=== PATIENT | male | born 1935 | race Caucasian/White ===

== ENCOUNTER 2019-10-23 16:05 | Emergency (ER) | payer MEDICARE ==
--- NOTE | 2019-10-23 16:28 | ER Document Report ---
ED Medical Screen (RME) - General Chief Complaint: Abnormal Lab Results Stated Complaint: ABNORMAL LABS Time Seen by Provider: 10/23/19 16:19 - HPI Notes: 10/23/19 16:23 83-year-old male with a history of cardiac bypass in 2006 and colon cancer who is currently in remission with a medical hx of hypothyroidism, hypercholesterolemia, hypertension, macular degeneration presents to the emergency room for hypokalemia and "something wrong with my kidneys". Patient states that he had blood work done at [facility] and advised to go to the local emergency room. Denies fevers, chills, chest pain,palpitations, shortness of breath, dyspnea, nausea, vomiting, diarrhea, abdominal pain, hematuria,blurred vision, double vision, loss of vision, speech changes, LH, dizziness, syncope, headaches, wheezing, ST, URI, neck pain, weakness, bowel or bladder dysfunction, saddle anesthesia, numbness or tingling in bilateral upper or lower extremities equally, muscle paralysis, weakness in bilateral upper or lower extremities equally or rash. Patient has never been seen on the emergency room before I have greeted and performed a rapid initial assessment of this patient. A comprehensive ED assessment and evaluation of the patient, analysis of test results and completion of the medical decision making process will be conducted by additional ED providers. PHYSICAL EXAMINATION: GENERAL: Well-appearing, well-nourished and in no acute distress. CV: s1, s2 regular LUNGS: No respiratory distress Musculoskeletal: Normal range of motion NEUROLOGICAL: Normal speech, normal gait. SKIN: Warm, Dry, normal turgor, no rashes or lesions noted. 10/23/19 16:26 Physical Exam - Vital signs Vitals: Temp Pulse Resp BP Pulse Ox 97.9 F 74 18 160/73 H 98 10/23/19 16:10 10/23/19 16:10 10/23/19 16:10 10/23/19 16:10 10/23/19 16:10 Course - Vital Signs Vital signs: Temp Pulse Resp BP Pulse Ox 97.9 F 74 18 160/73 H 98 10/23/19 16:10 10/23/19 16:10 10/23/19 16:10 10/23/19 16:10 10/23/19 16:10
[2019-10-23 17:19] LABS: ABSOLUTE BASOPHILS # (AUTO) 0.1 10^3/uL (0.0-0.2); ABSOLUTE EOSINOPHILS # (AUTO) 0.5 10^3/uL (0.0-0.6); ABSOLUTE LYMPHOCYTES (AUTO) 2.3 10^3/uL (0.5-4.7); ABSOLUTE MONOCYTES (AUTO) 0.8 10^3/uL (0.1-1.4); ABSOLUTE NEUT (AUTO) 4.2 10^3/uL (1.7-8.2); EOSINOPHILS % (AUTO) 5.9 % (0-6); HEMOGLOBIN 9.9 g/dL (13.5-17.0); MEAN CORPUSCULAR HEMOGLOBIN 31.6 pg (27.0-33.4); MEAN CORPUSCULAR VOLUME 96 fl (80-97); MONOCYTES % (AUTO) 10.1 % (3-13); PLATELET COUNT 218 10^3/uL (150-450); RED BLOOD COUNT 3.14 10^6/uL (4.35-5.55); RED CELL DISTRIBUTION WIDTH 14.6 % (11.5-14.0); TOTAL CELLS COUNTED % (AUTO) 100 %; WHITE BLOOD COUNT 7.9 10^3/uL (4.0-10.5)
[2019-10-23 17:40] LABS: ALBUMIN 4.1 g/dL (3.5-5.0); ALKALINE PHOSPHATASE 112 U/L (38-126); ANION GAP 6 (5-19); ASPARTATE AMINO TRANSFERASE 24 U/L (17-59); BILIRUBIN,TOTAL 0.2 mg/dL (0.2-1.3); BLOOD UREA NITROGEN 51 mg/dL (7-20); CALCIUM 9.2 mg/dL (8.4-10.2); CARBON DIOXIDE 17 mmol/L (22-30); CHLORIDE 116 mmol/L (98-107); CREATINE KINASE 47 U/L (55-170); GLUCOSE 98 mg/dL (75-110); PHOSPHORUS 4.3 mg/dL (2.5-4.5)
[2019-10-23 17:50] LABS: CREATINE KINASE MB 1.19 ng/mL (<4.55); TROPONIN I < 0.012 ng/mL
[2019-10-23 17:53] LABS: APPEARANCE,URINE SLIGHTLY-CLOUDY; BILIRUBIN,URINE NEGATIVE (NEGATIVE); COLOR,URINE YELLOW; GLUCOSE, URINE NEGATIVE (NEGATIVE); KETONES,URINE NEGATIVE (NEGATIVE); LEUKOCYTE ESTERASE,URINE TRACE (NEGATIVE); NITRITE,URINE NEGATIVE (NEGATIVE); PROTEIN,URINE NEGATIVE (NEGATIVE); URINE SPECIFIC GRAVITY 1.013; UROBILINOGEN,URINE NEGATIVE mg/dL (<2.0)
[2019-10-23 18:10] LABS: POTASSIUM 6.7 mmol/L (3.6-5.0)
--- NOTE | 2019-10-23 19:08 | ER Document Report ---
ED General <JUAN CARLOS GARZA - Last Filed: 10/23/19 19:07> - General Mode of Arrival: Ambulatory Information source: Patient - HPI Onset: Just prior to arrival <JCARLOS ONEIL JR - Last Filed: 10/23/19 19:16> - General Chief Complaint: Abnormal Lab Results Stated Complaint: ABNORMAL LABS Time Seen by Provider: 10/23/19 16:19 Notes: 10/23/19 18:52 - ED Nursing Note by OLVIN DAI Acct Num: [id number] : 1935 Patient Age: 83 Patient presents after having blood taken yesterday at MD office and was contacted and told to come to ED due to abnormal lab values. Patient has a potassium level of 6.7. Patient alert, oriented and at baseline. Respirations e/u. Patient gowned and applied to hospital monitor/bp/pulse ox and PIV established. (JCARLOS ONEIL JR) - Related Data Allergies/Adverse Reactions: No Known Allergies Allergy (Unverified 10/23/19 18:49) Past Medical History - Social History Smoking Status: Unknown if Ever Smoked Patient has homicidal ideation: No - Past Medical History Cardiac Medical History: Reports: Hx Hypercholesterolemia, Hx Hypertension Past Surgical History: Reports: Hx Cardiac Surgery - bypass 2006 <JUAN CARLOS GARZA - Last Filed: 10/23/19 19:07> Physical Exam - Vital signs Vitals: Temp Pulse Resp BP Pulse Ox 97.9 F 74 18 160/73 H 98 10/23/19 16:10 10/23/19 16:10 10/23/19 16:10 10/23/19 16:10 10/23/19 16:10 Course - Laboratory Result Diagrams: 10/23/19 16:40 10/23/19 16:40 <JUAN CARLOS GARZA - Last Filed: 10/23/19 19:07> - Laboratory Result Diagrams: 10/23/19 16:40 10/23/19 16:40 <JCARLOS ONEIL JR - Last Filed: 10/23/19 19:16> - Vital Signs Vital signs: Temp Pulse Resp BP Pulse Ox 97.9 F 74 18 160/73 H 97 10/23/19 18:50 10/23/19 16:10 10/23/19 16:10 10/23/19 16:10 10/23/19 18:50 - Laboratory Laboratory results interpreted by me: 10/23/19 10/23/19 10/23/19 16:40 16:40 16:40 RBC 3.14 L Hgb 9.9 L Hct 30.0 L RDW 14.6 H Potassium 6.7 H* Chloride 116 H Carbon Dioxide 17 L BUN 51 H Creatinine 3.22 H Est GFR ( Amer) 23 L Est GFR (MDRD) Non-Af 19 L Creatine Kinase 47 L TSH 0.24 L Ur Leukocyte Esterase Urine Ascorbic Acid 10/23/19 16:40 RBC Hgb Hct RDW Potassium Chloride Carbon Dioxide BUN Creatinine Est GFR ( Amer) Est GFR (MDRD) Non-Af Creatine Kinase TSH Ur Leukocyte Esterase TRACE H Urine Ascorbic Acid 40 H
[2019-10-23] MEDS ORDERED: SODIUM POLYSTYRENE SULFONATE 15 GM/60 ML PO ONE (19:15)
--- NOTE | 2019-10-23 19:18 | ER Document Report ---
ED Medical Screen (RME) - General Chief Complaint: Abnormal Lab Results Stated Complaint: ABNORMAL LABS Time Seen by Provider: 10/23/19 16:19 Mode of Arrival: Ambulatory Information source: Patient Notes: 10/23/19 18:52 - ED Nursing Note by OLVIN DAI Num: [id number] : 1935 Patient Age: 83 Patient presents after having blood taken yesterday at MD office and was contacted and told to come to ED due to abnormal lab values. Patient has a po tassium level of 6.7. Patient alert, oriented and at baseline. Respirations e/u. Patient gowned and applied to radiation monitor/bp/pulse ox and PIV established. my notes 83-year-old male arrives by POV after his received a phone call this afternoon telling him to go to the hospital because the potassium was too high. Patient reports he went to get a checkup at his doctor's office yesterday and had some blood drawn. 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 He no longer takes Motrin. Patient's goes to [place] because of myasthenia gravis and she is seen the effects of high potassium. Patient reports he has growling stomach all the time only soothed by soups. He cannot tolerate solid foods. He had 130 the stomach and 18 inches of his colon resected several years ago because of colon cancer. He did not receive any chemotherapy or radiation therapy per patient history. Patient had a colonoscopy 1 year later and this checked out okay. 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 Now he can only work for around 3 hours before getting severely tired. TRAVEL OUTSIDE OF THE [place] IN LAST 30 DAYS: No - HPI Onset: This afternoon Onset/Duration: Sudden Quality of pain: No pain Severity: None Pain Level: Denies Associated Symptoms: None Exacerbated by: Denies Relieved by: Denies Similar symptoms previously: No Recently seen / treated by doctor: No - Related Data Allergies/Adverse Reactions: No Known Allergies Allergy (Unverified 10/23/19 18:49) Past Medical History - General Information source: Patient - Social History Cigarette use (# per day): No Chew tobacco use (# tins/day): No Frequency of alcohol use: None Drug Abuse: None Lives with: Family Family history: Reviewed & Not Pertinent - Actually pertinent for mild kidney disease in the past and colectomy, Other - Past Medical History Cardiac Medical History: Reports: Hx Hypercholesterolemia, Hx Hypertension Renal/ Medical History: Reports: Hx Renal Insufficiency Malignancy Medical History: Reports Hx Colorectal Cancer GI Medical History: Reports: Hx Colonoscopy Past Surgical History: Reports: Hx Cardiac Surgery - bypass 2007 Review of Systems - Review of Systems Constitutional: No symptoms reported EENT: No symptoms reported Cardiovascular: No symptoms reported Respiratory: No symptoms reported Genitourinary: No symptoms reported Male Genitourinary: No symptoms reported Musculoskeletal: No symptoms reported Skin: No symptoms reported Hematologic/Lymphatic: No symptoms reported Neurological/Psychological: No symptoms reported Physical Exam - Vital signs Vitals: Temp Pulse Resp BP Pulse Ox 97.9 F 74 18 160/73 H 98 10/23/19 16:10 10/23/19 16:10 10/23/19 16:10 10/23/19 16:10 10/23/19 16:10 Interpretation: Hypertensive - General General appearance: Appears well - HEENT Head: Normocephalic, Atraumatic Eyes: Normal Pupils: PERRL Mucous membranes: Normal Pharynx: Normal Neck: Normal - Respiratory Respiratory status: No respiratory distress Chest status: Nontender Breath sounds: Normal Chest palpation: Normal - Cardiovascular Rhythm: Regular Heart sounds: Normal auscultation Murmur: No - Abdominal Inspection: Healed incision - Well-healed old surgical scar from colon And stomach resection, Other Distension: No distension Bowel sounds: Hyperactive Tenderness: Nontender Organomegaly: No organomegaly - Rectal Hemorrhoids: Other - deferred - Genitourinary Scrotum: Other - deferred - Back Back: Normal - Extremities General upper extremity: Normal inspection, Nontender, Normal color, Normal ROM, Normal temperature General lower extremity: Normal inspection, Nontender, Normal color, Normal ROM, Normal temperature, Normal weight bearing. No: Mandie's sign - Neurological Neuro grossly intact: Yes Cognition: Normal Orientation: AAOx4 Conway Coma Scale Eye Opening: Spontaneous Conway Coma Scale Verbal: Oriented Dany Coma Scale Motor: Obeys Commands Conway Coma Scale Total: 15 Speech: Normal Motor strength normal: LUE, RUE, LLE, RLE Sensory: Normal - Psychological Associated symptoms: Normal affect - Skin Skin Temperature: Warm Skin Moisture: Dry Course - Vital Signs Vital signs: Temp Pulse Resp BP Pulse Ox 97.9 F 74 22 H 138/59 H 98 10/23/19 18:50 10/23/19 16:10 10/23/19 22:00 10/23/19 22:01 10/23/19 22:01 - Laboratory Result Diagrams: 10/23/19 16:40 10/23/19 21:37 Laboratory results interpreted by me: 10/23/19 10/23/19 10/23/19 16:40 16:40 16:40 RBC 3.14 L Hgb 9.9 L Hct 30.0 L RDW 14.6 H Potassium 6.7 H* Chloride 116 H Carbon Dioxide 17 L BUN 51 H Creatinine 3.22 H Est GFR ( Amer) 23 L Est GFR (MDRD) Non-Af 19 L POC Glucose Creatine Kinase 47 L TSH 0.24 L Ur Leukocyte Esterase Urine Ascorbic Acid 10/23/19 10/23/19 10/23/19 16:40 20:15 21:37 RBC Hgb Hct RDW Potassium 5.2 H D Chloride 116 H Carbon Dioxide 17 L BUN 49 H Creatinine 3.02 H Est GFR ( Amer) 24 L Est GFR (MDRD) Non-Af 20 L POC Glucose 118 H Creatine Kinase TSH Ur Leukocyte Esterase TRACE H Urine Ascorbic Acid 40 H Critical Care Note - Critical Care Note Total time excluding time spent on procedures (mins): 60 Comments: Repeat potassium at 5.2 and patient was advised he may safely leave the ER. Doctor's Discharge - Discharge Clinical Impression: Hyperkalemia, Hyperkalemia, diminished renal excretion Condition: Good Disposition: HOME, SELF-CARE Additional Instructions: Follow-up with your personal doctor tomorrow return to ER as needed take medicines as directed encourage fluids and try to avoid high potassium foods like bananas.
[2019-10-23] MEDS ORDERED: INSULIN REG, HUMAN 100 UNIT/ML 3 ML VIAL (PYX) IV ONE (19:27)
[2019-10-23] MEDS ORDERED: NORMAL SALINE 1000 ML 1,000 ML IV ONE (19:27)
[2019-10-23] MEDS ORDERED: DEXTROSE 50%-WATER 25 GM/50 ML DISP.SYRIN IV ONE (19:29)
[2019-10-23 22:12] LABS: ANION GAP 7 (5-19); BLOOD UREA NITROGEN 49 mg/dL (7-20); CALCIUM 9.1 mg/dL (8.4-10.2); CARBON DIOXIDE 17 mmol/L (22-30); CHLORIDE 116 mmol/L (98-107); GLUCOSE 106 mg/dL (75-110)
[2019-10-23 22:21] LABS: POTASSIUM 5.2 mmol/L (3.6-5.0)
[2019-10-23 23:24] VITALS: BP 149/63
--- NOTE | 2019-10-24 02:26 | EKG REPORT ---
SEVERITY:- ABNORMAL ECG - SINUS RHYTHM CONSIDER ANTEROSEPTAL INFARCT : Confirmed by: Stacia Donahue MD 24-Oct-2019 02:25:39
== END 2019-10-23 23:31 | disposition home or self-care (01) ==
LOC: ER 16:05
DX: E87.5 Hyperkalemia (principal); E78.00 Pure hypercholesterolemia, unspecified; I10 Essential (primary) hypertension; Z85.038 Personal history of other malignant neoplasm of large intestine
CPT/HCPCS: 93005; 99285; 96361; 96374; 36415; 82553; 82962; 82550; 83735; 84100; 84443; 85025; 80053; 81001; 84484; 93010; J3490; A9270 ×2; J7030; J1815